=== PATIENT | female | born 1940 | race Caucasian/White ===

== ENCOUNTER 2017-05-24 18:23 | Inpatient (IN) | payer MEDICARE, MEDICAID ==
[~2017-05-24] VITALS: Ht 170.1 cm; Wt 73.9 kg
--- NOTE | ~2017-05-24 | WRIGHTHP ---
[place], [place] PATIENT HISTORY AND PHYSICAL EXAM NAME[id number] UN[facility] #: [id number] ROOM: 312 DOCTOR: MAL ROWE MD BIRTHDATE: [birth year] DOS: 05/25/2017 CHIEF COMPLAINT: "I was just so frustrated. I stated I was going to kill myself." HISTORY OF PRESENT ILLNESS: This is a 76-year-old white female who currently resides at [facility] in [place]. She was admitted there following a significant fall on her steps where she sustained a fracture of her left distal radius as well as injuring her right arm. She had only been at [facility] for several days, but was increasingly frustrated by her perception of the lack of caring of the staff. She stated that often times she would put her call light on and there would be in excess of 15 minutes before they would respond to her. As this frustration built, she became more and more depressed and despondent. She noted some minor fluctuations in sleep and appetite and also significant pain throughout the day. She began verbalizing suicidal thoughts and stated that she was going to take her own life given her level of frustration. When these comments continued to persist despite attempts to redirect and support, [place] did feel that she represented a significant risk of harm to herself. She herself did agree to sign into the hospital voluntarily stating that she needed to get some help before she would do something that was irrational. She was [facility] to rule out any organic factors, to stabilize on medication, to engage in individual and holbrook milieu activity, returning to the least restrictive environment when psychiatrically stable. PAST MEDICAL HISTORY: Remarkable for COPD, GERD, hyperlipidemia, iron deficiency and vitamin D deficiency. Of note, the patient has no previous psychiatric history. MENTAL STATUS: Upon admission here, the patient is alert and oriented with some mild time gaps. Mood does seem to be depressed. Affect is rather flat, blunted, and constricted. She is, however, able to joke and laugh. She does endorse multiple neurovegetative symptoms and does, however, state that she is not suicidal and does have forward plans for the future and would like to eventually rehab and return home with her dog. The patient does not exhibit any psychotic symptoms and there is no symptom suggestive of hypomania or mau. Memory for the most part is intact. DIAGNOSIS: Major depression, recurrent, severe. PLAN: The patient has already been started on Remeron 15 mg at bedtime and did have a good night sleep last evening. Screening examinations upon admission show her to have a very low vitamin D level of 12.5 and a low normal vitamin B12 level of 298. I will discontinue her daily vitamin D in lieu of vitamin D 50,000 International Units weekly and start vitamin B12 injection 1000 mcg IM today and every month thereafter. We will engage in individual and holbrook milieu activity with the ultimate plan to return back to [facility] when psychiatrically stable. [place], [place] PATIENT HISTORY AND PHYSICAL EXAM NAME: DIANA BROOKE UNIT #: [id number] ROOM: [facility] DOCTOR: MAL ROWE MD BIRTHDATE: [birth year] MAL ROWE MD CM:HISPHYS:PATIENT HISTORY AND PHYSICAL EXAMINATION [id number] MAL ROWE MD 05/25/17 1006 interface
--- NOTE | ~2017-05-24 | DS ---
[place], [place] DISCHARGE SUMMARY NAME[facility] [id number] UNIT #: [id number] ROOM: 312 DOCTOR: MAL ROWE MD BIRTHDATE: [birth year] DOS: 05/26/2017 CHIEF COMPLAINT: "I was just so frustrated, I said I was going to kill myself." HISTORY OF PRESENT ILLNESS: This is a 76-year-old white female who currently resides at [facility] in [place], [place]. She was sent here after she verbalized increased frustration and suicidal thoughts with a plan. The patient had been admitted recently to [facility] due to a fall on her steps where she sustained a fracture of her left distal radius as well as injuring her right arm. She reports a great deal of frustration adjusting to long-term care life stating that she would often put her call light on needing help and the response time would be in excess of 15 minutes, making her feel quite frustrated. She stated that this occurred prior to her verbalizing the suicidal thoughts. Upon admission here, she vehemently denied any type of suicidal thoughts and stated that she has a lot to live for and is anxious to get back to [place] to rehab, so she can have surgery and ultimately get back home to her little dog. She denies having a previous psychiatric history and has never been hospitalized nor has she ever seen a psychiatrist. PAST MEDICAL HISTORY: Remarkable for COPD, GERD, hyperlipidemia, iron deficiency, vitamin D deficiency. SUMMARY OF HOSPITAL COURSE: The patient was admitted to the unit where she vehemently denied suicidal thoughts and voiced positive plans for the future. She was very much forward looking. I did discuss with her the link between depression and slowing rehab potential down and she was open to trying an antidepressant to see if that would help her sleep and feel more like herself. I did start her on Remeron 15 mg at bedtime with excellent results, in that she reported that she was sleeping much better with it, waking up refreshed, having a better appetite. She continued throughout her short stay to verbalize positive plans for the future, wanting to get back to [place] so she could rehab heal and ultimately go and have surgery on her right arm. Her ultimate plan is to be able to return back to her home where she has a small dog that she cares for. The patient had improved sufficiently to return to [facility] on May 26. MENTAL STATUS AT DISCHARGE: The patient is alert and oriented. Mood does seem to be strongly trending towards euthymia. Affect is much more appropriate. There was no symptom suggestive of hypomania or mau. There are no overt auditory or visual hallucinations. No delusions were present. No paranoia is present. Memory for the most part is fully intact. FINAL DIAGNOSIS: Major depression, recurrent. PLAN: Her prescriptions have been E-scribed to [facility], an institutional pharmacy except for vitamin D which will be sent with her. I will follow her upon her return to [facility]. The patient is both medically stable, psychiatrically stable and her psychosocial needs seemed to be adequately met. She was discharged then in stable condition. [place], [place] DISCHARGE SUMMARY NAME: DIANA BROOKE UNIT #: [id number] ROOM: 312 DOCTOR: MAL ROWE MD BIRTHDATE: [birth year] MAL ROWE MD CM:DISCHARG [id number] MAL ROWE MD 05/27/17 1125 interface
[~2017-05-24 18:23] MED LIST: PERCOCET 5-3251 EACH PO
[2017-05-24] MEDS ORDERED: BACTRIM 400-801 EACH PO (18:32)
[2017-05-24] MEDS ORDERED: LIPITOR20 MG PO (18:32)
[2017-05-24] MEDS ORDERED: FERROUS SULFAT325 MG PO (18:34)
[2017-05-24] MEDS ORDERED: VITAMIN D31000 UNI1 PO (18:34)
[2017-05-24] MEDS ORDERED: OMEGA 3 1,0001 EACH PO (18:35)
[2017-05-24] MEDS ORDERED: ASPIRIN325 MG PO (18:36)
[2017-05-24] MEDS ORDERED: OMEPRAZOLE40 MG PO (18:36)
[2017-05-24] MEDS ORDERED: SYMB80 INH (18:37)
[2017-05-24] MEDS ORDERED: VENTOLIN 02.5 MG/3 M INH (18:38)
[2017-05-24 20:05] VITALS: BP 99/78
[2017-05-24 21:00] VITALS: BP 99/78
[2017-05-24 21:11] LABS: BILIRUBIN NEGATIVE (NEGATIVE); BLOOD NEGATIVE (NEGATIVE); CLARITY CLEAR (CLEAR); COLOR YELLOW (YELLOW); GLUCOSE NEGATIVE (NEGATIVE); KETONE NEGATIVE (NEGATIVE); LEUKO ESTERASE NEGATIVE (NEGATIVE); NITRITE NEGATIVE (NEGATIVE); UROBILINOGEN 0.2 E.U./dl (0.2-1.0)
[2017-05-24 21:19] LABS: BACTERIA TRACE
[2017-05-24 21:20] LABS: RBC 0-2 rbc/hpf (0-2)
[2017-05-24 22:04] LABS: BASO % 0.4 % (0.0-1.0); EOS # 0.3 10*3/uL (0.0-0.4); EOS % 3.1 % (1.0-4.0); HEMATOCRIT 30.1 % (37.0-47.0); HEMOGLOBIN 9.8 g/dl (12.0-16.0); LYMPH # 1.3 10*3/uL (1.3-4.4); LYMPH % 16.1 % (27.0-41.0); MEAN CELL VOLUME 97.7 fl (81.0-99.0); MEAN CORPUSCULAR HGB 31.8 pg (27.0-31.0); MEAN CORPUSCULAR HGB CONC 32.6 g/dl (33.0-37.0); MEAN PLATELET VOLUME 9.3 fl (9.6-12.3); MONO # 0.6 10*3/uL (0.1-1.0); MONO % 7.8 % (3.0-9.0); NEUT # 5.7 10*3/uL (2.3-7.9); NEUT % 71.2 % (47.0-73.0); NUCLEATED RED BLOOD CELL 0.3 % (0.0-0.0); PLATELET COUNT AUTOMATED 317 10*3/uL (130-400); RED BLOOD COUNT 3.08 10*6/uL (4.10-5.10); RED CELL DISTRI WIDTH 13.2 % (0-14.5)
[2017-05-24 22:19] LABS: ALKALINE PHOSPHATASE 86 U/L (45-117); BUN 14 mg/dl (7-24); CHLORIDE 102 mmol/L (98-107); CREATININE 1.08 mg/dL (0.55-1.02); POTASSIUM 3.8 mmol/L (3.5-5.1); SGOT/AST 51 IU/L (3-35); SGPT/ALT 51 U/L (12-78); SODIUM 139 mmol/L (136-145); TOTAL PROTEIN 6.4 gm/dL (6.4-8.2)
[2017-05-25 07:15] LABS: ALBUMIN 2.5 gm/dl (3.1-4.5); ALKALINE PHOSPHATASE 65 U/L (45-117); BUN 12 mg/dl (7-24); CHLORIDE 104 mmol/L (98-107); CHOLESTEROL 134 mg/dL (<200); CREATININE 0.88 mg/dL (0.55-1.02); HDL CHOLESTEROL 43 mg/dl (40-60); LDL CHOLESTEROL 42 mg/dL (9-159); POTASSIUM 3.5 mmol/L (3.5-5.1); SGOT/AST 46 IU/L (3-35); SGPT/ALT 44 U/L (12-78); SODIUM 142 mmol/L (136-145); TOTAL PROTEIN 5.3 gm/dL (6.4-8.2); TRIGLYCERIDES 247 mg/dl (<150); VLDL CHOLESTEROL 49 mg/dL (6-40)
[2017-05-25 08:01] VITALS: BP 123/69
[2017-05-25 08:35] LABS: VITAMIN D, 25-HYDROXY 12.5 ng/mL (30-100)
[2017-05-25 20:00] VITALS: BP 107/70
[2017-05-26 07:56] VITALS: BP 128/83
[2017-05-26] MEDS ORDERED: Vitamin D PO (09:16)
[2017-05-26] MEDS ORDERED: MIRTAZAPINE15 M2 PO (09:16)
== END 2017-05-26 14:11 | disposition other institution (70) | DRG 885 ==
LOC: 3N 18:23
PROVIDERS: Psychiatry & Neurology Psychiatry
DX: F33.2 Major depressive disorder, recurrent severe without psychotic features (principal); N17.0 Acute kidney failure with tubular necrosis; E43 Unspecified severe protein-calorie malnutrition; R45.851 Suicidal ideations; N39.0 Urinary tract infection, site not specified; J44.9 Chronic obstructive pulmonary disease, unspecified; K21.9 Gastro-esophageal reflux disease without esophagitis; E78.5 Hyperlipidemia, unspecified; E55.9 Vitamin D deficiency, unspecified; D64.9 Anemia, unspecified; D72.810 Lymphocytopenia; K59.00 Constipation, unspecified; E61.1 Iron deficiency; Z80.0 Family history of malignant neoplasm of digestive organs; Z79.82 Long term (current) use of aspirin; Z79.51 Long term (current) use of inhaled steroids; Z87.891 Personal history of nicotine dependence; Z90.49 Acquired absence of other specified parts of digestive tract; Z79.899 Other long term (current) drug therapy; S52.502D Unspecified fracture of the lower end of left radius, subsequent encounter for closed fracture with routine healing; S42.291D Other displaced fracture of upper end of right humerus, subsequent encounter for fracture with routine healing; Z68.25 Body mass index [BMI] 25.0-25.9, adult